=== PATIENT | female | born 1975 ===

== ENCOUNTER 2021-07-07 06:26 | Day surgery (SDC) | payer OTHER ==
[2021-07-07] MEDS ORDERED: PERCOCET 5-3251 EACH PO (09:54)
== END 2021-07-07 17:27 | disposition home or self-care (01) ==
LOC: CIR.AMB 06:26
PROVIDERS: ATTEND Obstetrics & Gynecology Gynecology
DX: K66.0 Peritoneal adhesions (postprocedural) (postinfection) (principal); R10.2 Pelvic and perineal pain; Z20.822 Contact with and (suspected) exposure to COVID-19